=== PATIENT | female | born 1970 | race Caucasian/White ===

== ENCOUNTER 2016-10-29 10:28 | Emergency (ER) | payer OTHER ==
[~2016-10-29] VITALS: Ht 167.6 cm; Wt 71.2 kg
[2016-10-29 11:29] LABS: Basophils # (auto) 0 uL; Basophils % (auto) 0.1 % (0.0-2.0); CONDITION Y; Eosinophils # (auto) 0 uL; Eosinophils % (auto) 0.1 % (0.0-7.0); Hematocrit 38.9 % (36.0-46.0); Hemoglobin 13.1 g/dL (12.2-16.2); Lymphocytes # (auto) 0.3 uL; Lymphocytes % (auto) 3.8 % (10.0-50.0); Mean Corpuscular Hemoglobin 29.2 pg (28.0-32.0); Mean Corpuscular Hgb Conc. 33.7 g/dL (32.0-36.0); Mean Corpuscular Volume 86.6 fL (80.0-100.0); Mean Platelet Volume 9.6 fL (7.4-10.4); Monocytes # (auto) 0.4 uL; Monocytes % (auto) 5.1 % (0.0-12.0); Neutrophils % (auto) 90.9 % (37.0-80.0); Platelet Count (auto) 245 10^3/uL (140-450); Red Cell Distribution Width 14.2 % (11.6-16.0); SUSPECT SEE PRINTOUT; White Blood Cell 8.8 10^3/uL (4.4-10.8)
[2016-10-29 11:49] LABS: Albumin 3.8 g/dL (3.4-5.0); BUN/Creatinine Ratio 15.8; Bilirubin, Total 0.6 mg/dL (0.2-1.0); Calcium 8.3 mg/dL (8.5-10.1); Potassium 3.6 mmol/L (3.5-5.1); Total Protein 7.7 g/dL (6.4-8.2)
[2016-10-29 12:09] LABS: Urine Bilirubin Negative (Negative); Urine Blood Negative /uL (Negative); Urine Color Yellow (Yellow); Urine Glucose Normal (Normal); Urine Mucus FEW (None Seen); Urine Nitrite Negative (Negative); Urine RBC 2 /hpf (0 - 4); Urine Squamous Epithelial Cell FEW /hpf (<5); Urine pH 6.5 (5.0-8.0)
[2016-10-29 12:12] LABS: Urine Ketone 1+ (Negative)
[2016-10-29] MEDS ORDERED: PANTOPRAZOLE 40 MG TAB PO ONE (16:00)
[2016-10-29] MEDS ORDERED: NALBUPHINE HCL 10 MG/1ml INJECTION IM ONE (16:00)
[2016-10-29] MEDS ORDERED: PROMETHAZINE HCL 25 MG/ML 1ML IM ONE (16:00)
[2016-10-29] MEDS ORDERED: cefTRIAXone W LIDOCAINE 1 GM IM IM ONE (16:00)
[2016-10-29] MEDS ORDERED: cefTRIAXone SOD 1,000 MG VL ONE (16:28)
[2016-10-29] MEDS ORDERED: LIDOCAINE 1% HCL (LOCAL ANESTH.) INJ 20ML MDV ONE (16:28)
[2016-10-29 16:30] VITALS: BP 116/86
[2016-10-29] MEDS ORDERED: cefTRIAXone SOD 1,000 MG VL IM ONE (17:00)
== END 2016-10-29 17:29 | disposition home or self-care (01) ==
LOC: ER 10:33
DX: K29.70 Gastritis, unspecified, without bleeding (principal)
CPT/HCPCS: 36415; 74176; 80053; 81001; 84702; 85025; 96372; 99285; J0696; J2001; J2300; J2550